=== PATIENT | female | born 1935 | race Caucasian/White ===

== ENCOUNTER → 2016-05-11 | Outpatient (CLI) | payer OTHER, MEDICARE | LOC: BHFA 08:00 | PROVIDERS: ATTEND Internal Medicine Cardiovascular Disease | DX: I50.9 Heart failure, unspecified (principal) | CPT/HCPCS: 78472; A9560 ==

== ENCOUNTER → 2016-05-19 | Outpatient (CLI) | payer OTHER, MEDICARE | LOC: BHFA 14:45 | PROVIDERS: ATTEND Internal Medicine Cardiovascular Disease | DX: I50.9 Heart failure, unspecified (principal); I34.0 Nonrheumatic mitral (valve) insufficiency ==

== ENCOUNTER → 2016-06-13 | Outpatient (CLI) | payer OTHER, MEDICARE | LOC: FIMAGING 13:08 | PROVIDERS: ATTEND Internal Medicine | DX: R05 Cough (principal); J18.9 Pneumonia, unspecified organism ==

== ENCOUNTER 2016-12-22 16:18 | Emergency (ER) | payer OTHER, MEDICARE ==
[2016-12-22 16:28] VITALS: RESP 16; TEMP 98.2
--- NOTE | 2016-12-22 16:55 | EDPHY ---
H & P Stated Complaint: lower abd/suprapubic pain, low bk pain x 6 days Time Seen by Provider: 12/22/16 16:54 HPI/ROS: HPI: This is an 81-year-old female presents with Chief Complaint: lower abd/suprapubic pain, low bk pain x 6 days Location: Lower abdomen Quality: Sharp cramping pain Duration: 6 days Signs and Symptoms: no fever, + nausea, no vomiting, no hematemesis, no blood in stool, no abdominal bloating, no diarrhea, + bilateral lower back pain, + urinary frequency, + burning with urination, indigestion, no chest pain, no shortness of breath Timing: Worsening Severity: Moderate Context: Patient reports that she has urinary incontinence and presents with complaints of burning with urination, urinary frequency that has been worsening over the last 6 days accompanied by lower bilateral back pain nonradiating in nature and now bilateral lower abdominal pain that sharp and cramping in nature. She has experienced some nausea but no vomiting. She went to urgent care on Monday and headache in out urinary catheterization which showed a urinary tract infection she was started on Macrobid an azo. She had a dose of Macrobid this morning as well as azo around 12 noon. She called her PCP this afternoon reported worsening of symptoms and he advised to go to the emergency room for further evaluation. History of bilateral tubal ligation, cholecystectomy. Patient reports that when she takes the Macrobid in the morning she does not eat it with any food and makes her slightly nauseous. She also reports that she has chronic lower back pain and sciatica which is usually on the left. Since she was diagnosed with the UTI on Monday she has not been as active and has been lying down more than usual. Modifying Factors: See above Comment: ROS: see HPI Constitutional: No fever, no chills, no weight loss Eyes: No blurred vision Respiratory: No shortness of breath, no cough Cardiovascular: No chest pain, no palpitations Gastrointestinal: + nausea, + vomiting, no diarrhea, no hematemesis, no blood in stool Genitourinary: + dysuria, no blood in urine Extremities: No myalgias, no edema Neurologic: No weakness, no numbness Skin: No rashes, no petechiae Hematologic: No bruising, no bleeding MEDICAL/SURGICAL/SOCIAL HISTORY: Medical history: Hypertension, sciatica, chronic pain, irritable bowel syndrome , anemia,pneumonia, ibs, mitral and tricuspid regurgitation, AMI, torsades Surgical history: cholecystectomy, bilateral tubal ligation Social history: Retired, strong support from her daughter's CONSTITUTIONAL: Elderly talkative pleasant white female, awake and alert, no obvious distress HEENT: Atraumatic and normocephalic, PERRL, EOMI. Tympanic membranes clear. Hard of hearing. Oropharynx clear, no exudate and moist pink mucosa. Airway patent. No lymphadenopathy. No meningismus. Cardiovascular: Normal S1/S2, regular rate, regular rhythm, without murmur rub or gallop. PULMONARY/CHEST: Symmetrical and nontender. Clear to auscultation bilaterally. Good air movement. No accessory muscle usage. ABDOMEN: Soft, nondistended, right lower quadrant, left lower quadrant moderate tenderness, no rebound, no guarding, no peritoneal signs, no masses or organomegaly. No CVAT. EXTREMITIES: 2/2 pulses, strength 5/5, no deformities, no clubbing, no cyanosis or edema. NEUROLOGICAL: no focal neuro deficits. GCS 15. SKIN: Warm and dry, no erythema. no rash. Good capillary refill. Source: Patient Exam Limitations: No limitations - Personal History Current Tetanus/Diphtheria Vaccine: Unsure Current Tetanus Diphtheria and Acellular Pertussis (TDAP): Unsure Tetanus Vaccine Date: 1994 - Medical/Surgical History Hx Asthma: Yes Hx Chronic Respiratory Disease: Yes Hx Diabetes: Yes Hx Cardiac Disease: Yes Hx Renal Disease: No Hx Cirrhosis: No Hx Alcoholism: No Hx HIV/AIDS: No Hx Splenectomy or Spleen Trauma: No Other PMH: Past medical history: Hypertension, sciatica, chronic pain, irritable bowel syndrome, anemia,pneumonia, ibs,. mitral and tricuspid regurgitation, AMI torsades, frederic - Social History Smoking Status: Former smoker Constitutional: Initial Vital Signs Temperature (C) 36.8 C 12/22/16 16:26 Heart Rate 59 L 12/22/16 16:26 Respiratory Rate 16 12/22/16 16:26 Blood Pressure 146/51 H 12/22/16 16:26 O2 Sat (%) 91 L 12/22/16 16:26 O2 Delivery Mode Room Air O2 (L/minute) 4 Allergies/Adverse Reactions: codeine [Codeine] Allergy (Intermediate, Verified 09/05/15 19:32) Vomiting doxycycline [Doxycycline] Allergy (Intermediate, Verified 09/05/15 19:32) Abdominal Pain Sulfa (Sulfonamide Antibiotics) Allergy (Intermediate, Verified 09/05/15 19:32) Vomiting Tetracyclines [Tetracycline Analogues] Allergy (Verified 09/05/15 19:32) 3M TAPE Allergy (Mild, Uncoded 11/29/12 22:42) Itching Home Medications: Medication Instructions Recorded Amitriptyline HCl [Elavil 10 mg 10 mg PO HS 09/02/11 (*)] Atorvastatin Calcium [Lipitor 20 20 mg PO HS 09/02/11 mg (*)] Multivitamins [Multivitamin (*)] 1 tab PO DAILY 09/02/11 Gabapentin [Neurontin 100 MG (*)] 200 mg PO DAILY 03/18/13 Levothyroxine [Synthroid 75 mcg 75 mcg PO DAILY06 03/18/13 (*)] Carvedilol [Coreg (*)] 25 mg PO BIDMEAL 08/03/14 Cholecalciferol Vit D3 [Vitamin D3 1,000 units PO DAILY 08/03/14 (*)] Lisinopril [Zestril 20 mg (*)] 20 mg PO DAILY #0 tab 08/10/14 Furosemide [Lasix 20 MG (*)] 40 mg PO DAILY PRN 02/24/15 Gabapentin [Neurontin 100 MG (*)] 300 mg PO HS 02/24/15 Ondansetron Odt [Zofran Odt 4 mg 4 mg PO Q4 PRN 02/24/15 (*)] Spironolactone [Aldactone 25 MG 25 mg PO DAILY 02/24/15 (*)] Warfarin Sodium [Coumadin 1MG (*)] 1 mg PO SUTUWETHSA 02/24/15 Warfarin Sodium [Coumadin 2MG (*)] 2 mg PO MOFR 02/24/15 amLODIPine BESYLATE [Norvasc 5 mg 10 mg PO DAILY 02/24/15 (*)] fentaNYL [Duragesic 12 MCG Patch 12 mcg TD Q72H 02/24/15 (*)] Omeprazole [Prilosec] 40 mg PO DAILY #0 capsule. 02/28/15 Chlorhexidine Gluconate [Peridex 15 ml PO BID@0900,2100 09/05/15 oral soln (*)] Diazepam [Valium 2 MG (*)] 1 mg PO HS 09/05/15 oxyCODONE/APAP 5/325 [Percocet 1 tab PO HS 09/05/15 5/325 (*)] Clindamycin HCl [Clindamycin] 300 mg PO TID #12 cap 09/08/15 guaiFENesin [Mucinex 600 MG (*)] 1,200 mg PO BID #30 tab.er 09/08/15 Medical Decision Making - Diagnostics Imaging Results: Imaging Impressions Abdomen CT 12/22/16 17:13 Impression: 1. No source for new pain identified. Specifically no evidence of diverticulitis, appendicitis or pyelonephritis. 2. Asymmetric urinary bladder, smooth mural thickening is again noted and unlikely to represent malignancy. Results called and discussed with Jordana Alvarez, at 12/22/2016 18:58 General information for patients regarding this examination can be found at [email or web address]. If you have questions or comments about this report, please contact me at [phone] (hospital) or [phone] (cell). ED Course/Re-evaluation: Labs, urinalysis, urine culture, IV fluids, IV medications, CT abdomen and pelvis scan ordered Given 1 L normal saline, IV morphine 4 mg, IV Zofran Vital signs reviewed upon arrival; afebrile and no tachycardia. 1845: Labs reviewed and grossly unremarkable. Urinalysis shows trace nitrates and trace epithelial cells but no clear indication of infection Called by radiologist who advised CT abdomen and pelvis scan shows no source for new pain identified. Specifically no evidence of diverticulitis, appendicitis or pyelonephritis. Patient does not show any worsening and in fact shows improvement in her urinalysis. Advised that she is to complete her Macrobid. Lower back pain is chronic in nature and likely due to her decreased activity and lying in bed over the last several days. No signs of sepsis/RISSA/electrolyte imbalance/diverticulitis/appendicitis/ pyelonephritis/obstruction Differential Diagnosis: Abdominal pain including but not limited to appendicitis, cholecystitis, gastritis and urinary tract infection. - Data Points Laboratory Results: Laboratory Results 12/22/16 17:29 12/22/16 17:29 12/22/16 12/22/16 12/22/16 17:40 17:29 17:29 WBC 4.82 10^3/uL 10^3/uL (3.80-9.50) RBC 3.88 10^6/uL L 10^6/uL (4.18-5.33) Hgb 12.2 g/dL L g/dL (12.6-16.3) Hct 37.7 % L % (38.0-47.0) MCV 97.2 fL fL (81.5-99.8) MCH 31.4 pg pg (27.9-34.1) MCHC 32.4 g/dL g/dL (32.4-36.7) RDW 12.7 % % (11.5-15.2) Plt Count 143 10^3/uL L 10^3/uL (150-400) MPV 8.9 fL fL (8.7-11.7) Neut % (Auto) 58.5 % % (39.3-74.2) Lymph % (Auto) 29.3 % % (15.0-45.0) [place] % (Auto) 8.5 % % (4.5-13.0) Eos % (Auto) 2.9 % % (0.6-7.6) Baso % (Auto) 0.4 % % (0.3-1.7) Nucleat RBC Rel Count 0.0 % % (0.0-0.2) Absolute Neuts (auto) 2.82 10^3/uL 10^3/uL (1.70-6.50) Absolute Lymphs (auto) 1.41 10^3/uL 10^3/uL (1.00-3.00) Absolute Monos (auto) 0.41 10^3/uL 10^3/uL (0.30-0.80) Absolute Eos (auto) 0.14 10^3/uL 10^3/uL (0.03-0.40) Absolute Basos (auto) 0.02 10^3/uL 10^3/uL (0.02-0.10) Absolute Nucleated RBC 0.00 10^3/uL 10^3/uL (0-0.01) Immature Gran % 0.4 % % (0.0-1.1) Immature Gran # 0.02 10^3/uL 10^3/uL (0.00-0.10) Sodium 140 mEq/L mEq/L (134-144) Potassium 4.9 mEq/L mEq/L (3.5-5.2) Chloride 99 mEq/L mEq/L (97-110) Carbon Dioxide 31 mEq/l mEq/l (22-31) Anion Gap 10 mEq/L mEq/L (8-16) BUN 17 mg/dL mg/dL (7-23) Creatinine 0.8 mg/dL mg/dL (0.6-1.0) Estimated GFR > 60 Glucose 85 mg/dL mg/dL (70-100) Calcium 9.1 mg/dL mg/dL (8.5-10.4) Total Bilirubin 1.0 mg/dL mg/dL (0.1-1.4) Conjugated Bilirubin 0.0 mg/dL mg/dL (0.0-0.5) Unconjugated Bilirubin 1.0 mg/dL mg/dL (0.0-1.1) AST 39 IU/L IU/L (14-46) ALT 31 IU/L IU/L (9-52) Alkaline Phosphatase 61 IU/L IU/L (38-126) Total Protein 6.0 g/dL L g/dL (6.3-8.2) Albumin 3.7 g/dL g/dL (3.5-5.0) Lipase 296 IU/L IU/L (23-300) Urine Color ORANGE Urine Appearance CLEAR Urine pH 6.0 (5.0-7.5) Ur Specific [place] 1.003 (1.002-1.030) Urine Protein NEGATIVE (NEGATIVE) Urine Ketones NEGATIVE (NEGATIVE) Urine Blood NEGATIVE (NEGATIVE) Urine Nitrate POSITIVE H (NEGATIVE) Urine Bilirubin NEGATIVE (NEGATIVE) Urine Urobilinogen 4.0 EU H EU (0.2-1.0) Ur Leukocyte Esterase NEGATIVE (NEGATIVE) Urine RBC NONE SEEN /hpf /hpf (0-3) Urine WBC NONE SEEN /hpf /hpf (0-3) Ur Epithelial Cells TRACE /lpf /lpf (NONE-1+) Urine Glucose NEGATIVE (NEGATIVE) Medications Given: Discontinued Medications Sodium Chloride (Ns) 1,000 mls @ 0 mls/hr IV EDNOW ONE; Wide Open PRN Reason: Protocol Stop: 12/22/16 17:03 Last Admin: 12/22/16 17:44 Dose: 1,000 mls Morphine Sulfate (Morphine) 4 mg IVP EDNOW ONE Stop: 12/22/16 17:13 Last Admin: 12/22/16 17:44 Dose: 4 mg Ondansetron HCl (Zofran) 4 mg IVP EDNOW ONE Stop: 12/22/16 17:13 Last Admin: 12/22/16 17:47 Dose: Not Given Departure - Departure Disposition: Home, Routine, Self-Care Clinical Impression: Lower urinary tract infection Condition: Good Instructions: Urinary Tract Infection in Women (ED), Chronic Back Pain (ED), Sciatica (ED) Additional Instructions: Please complete the remaining 3 days of Macrobid. Drink plenty of fluids to prevent dehydration. Call your primary care provider tomorrow to have a follow-up appointment on Monday. Take medications with food to prevent nausea. Referrals: [facility],. [Clinic] - As per Instructions
[2016-12-22] MEDS ORDERED: NS 1,000 ML IV ONE (17:02)
[2016-12-22] MEDS ORDERED: ONDANSETRON 4 MG/2 ML VIAL IVP ONE (17:12)
[2016-12-22 17:45] LABS: % IMMATURE GRANULYOCYTES 0.4 % (0.0-1.1); ABSOLUTE IMMATURE GRANULOCYTES 0.02 10^3/uL (0.00-0.10); ADD DIFF? NO; ADD MORPH? NO; ADD SCAN? NO; ATYPICAL LYMPHOCYTE FLAG 0 (0-99); FRAGMENT RBC FLAG 0 (0-99); HEMATOCRIT 37.7 % (38.0-47.0); HEMOGLOBIN 12.2 g/dL (12.6-16.3); LEFT SHIFT FLG 0 (0-99); LIPEMIA HEMOLYSIS FLAG 80 (0-99); MEAN CELL HEMOGLOBIN 31.4 pg (27.9-34.1); MEAN CELL HEMOGLOBIN CONCENTR. 32.4 g/dL (32.4-36.7); MEAN CELL VOLUME 97.2 fL (81.5-99.8); MEAN PLATELET VOLUME 8.9 fL (8.7-11.7); PLATELET CLUMPS FLAG 0 (0-99); PLATELET COUNT 143 10^3/uL (150-400); RED BLOOD CELL COUNT 3.88 10^6/uL (4.18-5.33); RED CELL DISTRIBUTION WIDTH 12.7 % (11.5-15.2)
[2016-12-22] MEDS ORDERED: IOPAMIDOL (ISOVUE-300) 100 ML BTL ONE ×2 (17:49→18:13)
[2016-12-22 17:59] LABS: ALANINE AMINOTRANSFERASE 31 IU/L (9-52); ALBUMIN 3.7 g/dL (3.5-5.0); ALKALINE PHOSPHATASE 61 IU/L (38-126); ANION GAP 10 mEq/L (8-16); ASPARTATE AMINOTRANSFERASE 39 IU/L (14-46); CALCIUM 9.1 mg/dL (8.5-10.4); CARBON DIOXIDE 31 mEq/l (22-31); CHLORIDE 99 mEq/L (97-110); CREATININE 0.8 mg/dL (0.6-1.0); GLOMERULAR FILTRATION RATE > 60; GLUCOSE 85 mg/dL (70-100); POTASSIUM 4.9 mEq/L (3.5-5.2); SODIUM 140 mEq/L (134-144)
[2016-12-22 18:33] LABS: LEUKOCYTE ESTERASE,URINE NEGATIVE (NEGATIVE); NITRITE,URINE POSITIVE (NEGATIVE)
[2016-12-22 18:34] LABS: COLOR ORANGE
[2016-12-22 18:36] LABS: RBC,URINE NONE SEEN /hpf (0-3); WBC,URINE NONE SEEN /hpf (0-3)
[2016-12-22 20:01] VITALS: BP 139/77; PULSE 63; O2SAT 95
== END 2016-12-22 20:00 | disposition home or self-care (01) ==
DX: N39.0 Urinary tract infection, site not specified (principal); B96.89 Other specified bacterial agents as the cause of diseases classified elsewhere; J45.909 Unspecified asthma, uncomplicated; I10 Essential (primary) hypertension; E11.9 Type 2 diabetes mellitus without complications; E86.9 Volume depletion, unspecified; Z87.891 Personal history of nicotine dependence; Z79.01 Long term (current) use of anticoagulants
CPT/HCPCS: 74177; 96361; 96374; 99285; J2405; Q9967

== ENCOUNTER → 2017-03-07 | Outpatient (CLI) | payer OTHER, MEDICARE | LOC: FIMAGING 15:32 | PROVIDERS: ATTEND Internal Medicine | DX: M54.6 Pain in thoracic spine (principal) ==

== ENCOUNTER 2017-03-23 20:00 | Inpatient (IN) | payer OTHER, MEDICARE ==
[2017-03-23] MEDS ORDERED: PROMETHAZINE HCL 25 MG/ML INJ IVP ONE ×2 (20:12→20:13)
--- NOTE | 2017-03-23 20:15 | EDPHY ---
H & P Time Seen by Provider: 03/23/17 20:14 HPI/ROS: CHIEF COMPLAINT: Nausea vomiting and dizziness HISTORY OF PRESENT ILLNESS: Symptoms started at 6:00 p.m.. Severe dizziness which she describes as spinning worse with moving her head associated with multiple episodes of nausea and vomiting. Later about an hour afterwards was associated with some epigastric abdominal pain and cramping. Unable to walk, brought in by EMS. Received IV Zofran by fire. No other medications by [facility]. REVIEW OF SYSTEMS: Eye: no change in vision ENT: no sore throat, hearing aids, chronic decreased hearing no change. No loss of hearing or ringing in her ears Cardiac: no chest pain or syncope Pulmonary: no cough or SOB Abdomen: HPI Musculoskeletal: no back pain Skin: no rash Neuro: no headache Constitutional: no fever : no urinary symptoms A comprehensive 10 point review of systems is otherwise negative aside from elements mentioned in the history of present illness. PAST MEDICAL HISTORY: History and physical dated 02/24/2015 personally reviewed includes torsade, PE on warfarin, hypertension, depression, thyroid, hyperlipidemia, TIA, irritable bowel, cardiomyopathy. Social history: Here with her daughter General Appearance: Alert and conversant, cooperative. Eyes: No scleral icterus. Nystagmus to the right, pupils equal and reactive ENT, Mouth: Normal mucous membranes. Right tympanic membrane normal, left one is a hearing aid in place Respiratory: Normal respiratory effort, breath sounds equal, lungs are clear to auscultation. Cardiovascular: Regular rate and rhythm. Gastrointestinal: Epigastric discomfort but no rebound or guarding on palpation. Neurological: Alert, face symmetric, normal motor and sensory in extremities. She is generally weak and is in such distress she has difficulty following commands. She can answer questions. Her hearing is decreased. She can do [id number] on both sides. Skin: Warm and dry, no rashes. Musculoskeletal: No peripheral edema. Psychiatric: Very anxious. Emergency Department course/MDM: 12.[address] ordered with vertigo and on warfarin. Labs to include LFTs and lipase. EKG performed. 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 Patient received Zofran pre- hospital, so I gave her 2 g of IV magnesium here. 2112: Head CT per [place] shows atrophy nothing acute. Patient has severe peripheral vertigo disabling symptoms will need to be admitted for supportive care. At this point I think the likelihood of central cause for vertigo is unlikely. I think her abdominal pain is most likely because of severe vomiting and not because of pancreatitis or hepatitis or some surgical process. Results discussed with the daughter at this time. Patient is comfortable now. Smoking Status: Former smoker Constitutional: Initial Vital Signs Temperature (C) 36.3 C 03/23/17 20:00 Heart Rate 85 03/23/17 20:00 Respiratory Rate 18 03/23/17 20:00 Blood Pressure 166/79 H 03/23/17 20:00 O2 Sat (%) 93 03/23/17 20:00 O2 Delivery Mode Room Air Allergies/Adverse Reactions: codeine [Codeine] Allergy (Intermediate, Verified 09/05/15 19:32) Vomiting doxycycline [Doxycycline] Allergy (Intermediate, Verified 09/05/15 19:32) Abdominal Pain Sulfa (Sulfonamide Antibiotics) Allergy (Intermediate, Verified 09/05/15 19:32) Vomiting Tetracyclines [Tetracycline Analogues] Allergy (Verified 09/05/15 19:32) 3M TAPE Allergy (Mild, Uncoded 11/29/12 22:42) Itching Home Medications: Medication Instructions Recorded Amitriptyline HCl [Elavil 10 mg 10 mg PO HS 09/02/11 (*)] Atorvastatin Calcium [Lipitor 20 20 mg PO HS 09/02/11 mg (*)] Multivitamins [Multivitamin (*)] 1 tab PO DAILY 09/02/11 Gabapentin [Neurontin 100 MG (*)] 200 mg PO DAILY 03/18/13 Levothyroxine [Synthroid 75 mcg 75 mcg PO DAILY06 03/18/13 (*)] Carvedilol [Coreg (*)] 25 mg PO BIDMEAL 08/03/14 Cholecalciferol Vit D3 [Vitamin D3 2,000 units PO DAILY 08/03/14 (*)] Lisinopril [Zestril 20 mg (*)] 20 mg PO DAILY #0 tab 08/10/14 Gabapentin [Neurontin 100 MG (*)] 300 mg PO HS 02/24/15 Warfarin Sodium [Coumadin 1MG (*)] 1 mg PO SUMOWETHSA 02/24/15 Warfarin Sodium [Coumadin 2MG (*)] 2 mg PO TUFR 02/24/15 amLODIPine BESYLATE [Norvasc 5 mg 5 mg PO DAILY 02/24/15 (*)] fentaNYL [Duragesic 12 MCG Patch 12 mcg TD Q72H 02/24/15 (*)] Omeprazole [Prilosec] 40 mg PO DAILY #0 capsule. 02/28/15 Diazepam [Valium 2 MG (*)] 1 mg PO HS 09/05/15 oxyCODONE/APAP 5/325 [Percocet 1 tab PO HS 09/05/15 5/325 (*)] Diazepam [Diazepam] 2.5 mg PO HS 03/23/17 Medical Decision Making - Diagnostics EKG Interpretation: 12-lead EKG interpreted by me; official reading is in trace master. My interpretation is sinus rhythm with ventricular bigeminy and left bundle branch block Imaging Results: Imaging Impressions Head CT 03/23/17 20:13 Impression: Severe atrophy. Nothing acute identified.. Results called to Dr. Dobbs at 9:13 pm General information for patients regarding this examination can be found at [email or web address]. If you have questions or comments about this report, please contact me at [phone] (hospital) or [phone] (cell). Imaging: Discussed imaging studies w/ tie up worker Radiologist, I viewed and interpreted images myself Differential Diagnosis: Differential diagnosis considered for dizziness including but not limited to peripheral and central causes of vertigo, vascular dissection, cerebellar bleed or stroke, orthostatic causes including dehydration, and blood loss. Consult/Admit Bed Type: [place] [id number] - Data Points Laboratory Results: Laboratory Results 03/23/17 20:45 03/23/17 20:45 03/23/17 03/23/17 03/23/17 20:45 20:45 20:45 WBC 6.85 10^3/uL 10^3/uL (3.80-9.50) RBC 4.37 10^6/uL 10^6/uL (4.18-5.33) Hgb 14.0 g/dL g/dL (12.6-16.3) Hct 42.6 % % (38.0-47.0) MCV 97.5 fL fL (81.5-99.8) MCH 32.0 pg pg (27.9-34.1) MCHC 32.9 g/dL g/dL (32.4-36.7) RDW 11.8 % % (11.5-15.2) Plt Count 137 10^3/uL L 10^3/uL (150-400) MPV 9.2 fL fL (8.7-11.7) Neut % (Auto) 71.3 % % (39.3-74.2) Lymph % (Auto) 19.1 % % (15.0-45.0) [place] % (Auto) 7.2 % % (4.5-13.0) Eos % (Auto) 2.0 % % (0.6-7.6) Baso % (Auto) 0.3 % % (0.3-1.7) Nucleat RBC Rel Count 0.0 % % (0.0-0.2) Absolute Neuts (auto) 4.88 10^3/uL 10^3/uL (1.70-6.50) Absolute Lymphs (auto) 1.31 10^3/uL 10^3/uL (1.00-3.00) Absolute Monos (auto) 0.49 10^3/uL 10^3/uL (0.30-0.80) Absolute Eos (auto) 0.14 10^3/uL 10^3/uL (0.03-0.40) Absolute Basos (auto) 0.02 10^3/uL 10^3/uL (0.02-0.10) Absolute Nucleated RBC 0.00 10^3/uL 10^3/uL (0-0.01) Immature Gran % 0.1 % % (0.0-1.1) Immature Gran # 0.01 10^3/uL 10^3/uL (0.00-0.10) PT 31.2 SEC H SEC (12.0-15.0) INR 3.03 H (0.83-1.16) Sodium 141 mEq/L mEq/L (135-145) Potassium 4.4 mEq/L mEq/L (3.5-5.2) Chloride 102 mEq/L mEq/L (97-110) Carbon Dioxide 28 mEq/l mEq/l (22-31) Anion Gap 11 mEq/L mEq/L (8-16) BUN 22 mg/dL mg/dL (7-23) Creatinine 0.9 mg/dL mg/dL (0.6-1.0) Estimated GFR 60 Glucose 121 mg/dL H mg/dL (70-100) Calcium 9.4 mg/dL mg/dL (8.5-10.4) Total Bilirubin 0.4 mg/dL mg/dL (0.1-1.4) Conjugated Bilirubin 0.3 mg/dL mg/dL (0.0-0.5) Unconjugated Bilirubin 0.1 mg/dL mg/dL (0.0-1.1) AST 29 IU/L IU/L (14-46) ALT 35 IU/L IU/L (9-52) Alkaline Phosphatase 77 IU/L IU/L (38-126) Troponin I < 0.012 ng/mL ng/mL (0.000-0.034) Total Protein 6.7 g/dL g/dL (6.3-8.2) Albumin 4.2 g/dL g/dL (3.5-5.0) Lipase 244 IU/L IU/L (23-300) Medications Given: Discontinued Medications Magnesium Sulfate (Magnesium Sulf 2 Gm (Premix)) 50 mls @ 50 mls/hr IV EDNOW ONE Stop: 03/23/17 21:49 Last Admin: 03/23/17 21:09 Dose: 50 mls Promethazine HCl (Phenergan) 12.5 mg IVP ONCE ONE Stop: 03/23/17 20:13 Last Admin: 03/23/17 20:38 Dose: 12.5 mg Promethazine HCl (Phenergan) 12.5 mg IVP EDNOW ONE Stop: 03/23/17 20:14 Last Admin: 03/23/17 20:34 Dose: Not Given Departure - Departure Disposition: [facility] Acute Clinical Impression: Vertigo Condition: Fair
--- NOTE | 2017-03-23 20:23 | CPEKG ---
Heart Rate: 65 RR Interval: 923 P-R Interval: 196 QRSD Interval: 152 QT Interval: 436 QTC Interval: 454 P [place]: 70 QRS [place]: -60 T Wave [place]: 78 EKG Severity - ABNORMAL ECG - EKG Impression: SINUS RHYTHM EKG Impression: VENTRICULAR BIGEMINY EKG Impression: LEFT BUNDLE BRANCH BLOCK Electronically Signed By: Jose Dobbs 23-Mar-2017 21:12:48
[2017-03-23] MEDS ORDERED: MAGNESIUM SULF 2 GM/WATER 50 ML IV ONE (20:50)
[2017-03-23 21:00] LABS: PLATELET COUNT 137 10^3/uL (150-400)
[2017-03-23 21:09] LABS: INR 3.03 (0.83-1.16); PROTIME(PATIENT) 31.2 SEC (12.0-15.0)
[2017-03-23] MEDS ORDERED: ACETAMINOPHEN 325 MG TAB PO PRN (22:50)
[2017-03-23] MEDS ORDERED: ONDANSETRON 4 MG/2 ML VIAL IVP PRN (22:50)
[2017-03-23] MEDS ORDERED: PROMETHAZINE HCL 25 MG/ML INJ IVP PRN (22:50)
[2017-03-23] MEDS ORDERED: NS 1,000 ML IV SCH (23:00)
[2017-03-24 04:18] LABS: PLATELET COUNT 138 10^3/uL (150-400)
[2017-03-24 04:21] LABS: INR 3.23 (0.83-1.16); PROTIME(PATIENT) 32.8 SEC (12.0-15.0)
--- NOTE | 2017-03-24 06:27 | GHP ---
[f rep st] HISTORY AND PHYSICAL DATE OF ADMISSION: 03/23/2017 SOURCE: Patient provides history, appears reliable. Her daughter is at bedside and supplements details. CHIEF COMPLAINT: The room was spinning, vertigo. HISTORY OF PRESENT ILLNESS: This is a very pleasant 81-year-old female with a past medical history significant for PE on Coumadin, torsade de pointes with a previous history of electrolyte disturbance, resolved, hypertension, depression , hypothyroidism, hyperlipidemia, IBS, nocturnal hypoxia, and CAD with history of IA, who presents to the emergency department today via EMS after she developed severe intractable vertigo with nausea and vomiting. Symptoms started suddenly, approximately 6 p.m. Patient reports she was sitting at the computer and then was on her way to walk to the bathroom when she developed sudden severe vertigo. Patient cannot recall which direction she had felt like she was spinning. She was not able to control her nausea and vomiting. She did develop a little bit of mild epigastric abdominal pain, which is now resolved. The patient denies any recent fevers or chills. No other upper respiratory illnesses. Patient states she has had some chills since arrival to the hospital, but no sweats or subjective fevers. The patient denies any known hematemesis. The patient denies any recent head injuries or falls. Patient without any previous history of vertigo. She has no associated numbness, tingling, or focal weakness. She just felt weak in general. She did have to sit down, and she pushed her Life Alert button. REVIEW OF SYSTEMS: GENERAL: Negative for fevers. Positive for current chills. No sweats. SKIN: No rash or sores. ENT: Patient denies any current rhinorrhea or sore throat. EYES: Vertigo as noted above, but otherwise patient denies any loss of vision. CV: Patient denies any chest pain or palpitations. RESPIRATORY: No shortness of breath or cough. GI: Nausea, vomiting, and abdominal pain as noted above. Now resolved. : No dysuria or hematuria. MUSCULOSKELETAL: Patient denies any focal weakness, numbness, or tingling. No significant joint pain from baseline. NEURO: Patient denies any headache. No numbness or tingling. Remainder of review of systems negative except as noted above. ALLERGIES: To codeine, doxy, sulfa, tetracycline. HOME MEDICATIONS: Coumadin 2 mg p.o. Monday and Monday, 1 mg p.o. all other days; Valium 1 to 2.5 mg p.o. q.h.s.; atorvastatin 20 mg p.o. at HS; amitriptyline 10 mg p.o. at HS; Percocet 5/325 1 tab p.o. at HS; gabapentin 300 mg p.o. at HS; fentanyl 12 mcg transdermal every 72 hours; multivitamin p.o. daily; vitamin D3 2000 units p.o. daily; amlodipine 5 mg p.o. daily; omeprazole 40 mg p.o. daily; lisinopril 20 mg p.o. daily; levothyroxine 75 mcg p.o. in the morning; gabapentin 200 mg p.o. daily; Coreg 25 mg p.o. b.i.d. with meals. PAST MEDICAL HISTORY: Significant for PE on Coumadin, benign essential hypertension, depression, hypothyroidism, hyperlipidemia, TIA, IBS, cardiomyopathy, nocturnal hypoxia on oxygen at HS, decreased hearing with use of bilateral hearing aids, CAD with history of IA in 2014. PAST SURGICAL HISTORY: Significant for left total hip arthroplasty, back surgery L5-S1, right CEA, cardiac cath x2 without need for stenting, bilateral cataract extraction with lens replacement. FAMILY HISTORY: Negative for CVA. SOCIAL HISTORY: Patient lives independently. She has good family supportive daughters in town. She quit smoking in 2002, with a 25 pack/year history. She does drink an occasional glass of wine, but nothing on a daily basis. She does not use any illicit drugs or marijuana. CODE STATUS: Full. PHYSICAL EXAMINATION: VITAL SIGNS: At the time of arrival to the ED, blood pressure 166/79, heart rate 85, respiratory rate 18, O2 sat 93% on room air, with a temperature of 36.3. Vitals at time of interview available: Blood pressure 145/56, heart rate 70, respiratory rate 18, O2 sat 97% on 4 L by nasal cannula, with a temperature 36.3. Tele with normal sinus rhythm, PVCs. GENERAL : No acute distress. Very pleasant, frail, elderly-appearing female, lying quietly in bed. Her daughter is at bedside. HEAD: Normocephalic, atraumatic. EYES: Extraocular muscles are intact. Pupils equal, round, reactive to light bilaterally and symmetric. No scleral icterus or conjunctival injection. No nystagmus noted. ENT: Mucous membranes appear quite dry. No oropharyngeal erythema or exudates. Dentures in place. NECK: Supple. Trachea midline. CV: Regular rate and rhythm. 2/6 systolic murmur appreciated. No chest wall tenderness to palpation. RESPIRATORY: Lungs are clear to auscultation bilaterally. Decreased inspiratory effort with associated diminished breath sounds bibasilarly. No wheezes, rales, or rhonchi appreciated. ABDOMEN: Positive bowel sounds, soft, nontender to palpation. No rebound, guarding, or masses appreciated. : No suprapubic tenderness to palpation. No Triplett catheter in place. EXTREMITIES: Patient without any cyanosis or clubbing, and she does have some trace lower extremity pitting edema. Patient still with 2+ pedal pulses. NEURO: Cranial nerves 2-12 intact and symmetric bilaterally. Patient is awake, alert, and oriented x4. PSYCH: Patient's thought process, content, and questions are all appropriate. She answers all questions. LABORATORY STUDIES: WBC 6.85, H and H 14.0 and 42.6, MCV 97.5, platelet count 137, no bands. PT is 31.2, INR is 2.03. Sodium is 141, potassium is 4.4, chloride 102, CO2 is 28, anion gap 11, BUN 22, creatinine 0.9, GFR 60, glucose 121, calcium 9.4, total bilirubin 0.4, ALT is 35, AST is 29, alkaline phosphatase 77. Troponin is negative. Total protein 6.7, albumin 4.2, lipase 244. TSH is 3.330. EKG reviewed myself showing sinus rhythm in the 60s with ventricular bigeminy and left bundle branch block. QTc is 454. Compared to available EKG from 02/25, shows normal sinus rhythm with a left bundle branch block. No PVCs. CT head report reviewed, showing severe atrophy, otherwise nothing acute. ASSESSMENT AND PLAN: This is a very pleasant 81-year-old female who presents with intractable vertigo and associated nausea and vomiting. 1. Vertigo. Etiology possibilities including otoliths or labyrinthitis versus less likely CVA. Patient did receive some IV fluids and antiemetics in the emergency department, and her symptoms have completely resolved at this time. Patient without any recent illness. We will continue with IV fluid hydration. We will work with pharmacy to do a review of patient's home medications that could be contributing. Phenergan will be available p.r.n. IV fluids as above. 2. Intractable nausea and vomiting, now resolved along with her vertiginous symptoms. Phenergan available p.r.n. IV fluids. 3. Thrombocytopenia, mildly decreased. Patient is on Coumadin. No evidence of active bleeding. Continue to monitor. 4. Supratherapeutic INR, slightly above range. Pharmacy consult to assist with dosing of her Coumadin while she is here. 5. Hyperglycemia. Mildly elevated in a nonfasting lab in a frail elderly lady. We will allow for some permissive hyperglycemia. 6. Benign essential hypertension. Patient's blood pressures at this time are acceptable. Resume her home medications in the morning, including her beta cal. We will monitor her electrolytes closely given her previous history of torsades, and replace as needed. 7. History of pulmonary embolism, on Coumadin. Continue as above. 8. Coronary artery disease. Continue patient's statin, beta-cal, and TERESITA. 9. Depression. Patient's mood is currently controlled. She does have amitriptyline at HS and gabapentin. We will plan to resume. 10. Hypothyroidism. Continue levothyroxine. 11. Hyperlipidemia. Continue statin. 12. Nocturnal hypoxia. Patient is on supplemental oxygen at this time, without any episodes of hypoxia. We will monitor on pulse ox. 13. Hard of hearing. Patient does have bilateral hearing aids. 14. Fluids, electrolytes, nutrition. Continue with IV fluid supplementation. Patient does appear to remain dehydrated at this time. Encourage oral intake as tolerated. Electrolytes will be monitored and replaced aggressively as needed. Advancing diet as tolerated, cardiac. 15. Prophylaxis, on Coumadin, supratherapeutic. SCDs if tolerated. 16. CORE status is full. DISPOSITION: Patient has been admitted to observation, placed on Med/Surg floor with PCU overflow, and will be monitored on telemetry. Possibility for discharge in the morning if patient is sufficiently hydrated and has no recurrence of symptoms. /[id number]/MODL MTDD
[2017-03-24] MEDS: CARVEDILOL 25 MG TAB PO SCH ×2 (08:22→16:59)
[2017-03-24] MEDS: LEVOTHYROXINE 75 MCG TAB PO SCH (08:22)
[2017-03-24] MEDS: LISINOPRIL 20 MG TAB PO SCH (08:23)
[2017-03-24] MEDS: GABAPENTIN 100 MG CAP PO SCH (08:23)
[2017-03-24] MEDS: amLODIPine BESYLATE 5 MG TAB PO SCH (08:23)
[2017-03-24] MEDS ORDERED: fentaNYL 12 MCG PATCH TD SCH (10:00)
[2017-03-24] MEDS ORDERED: NON-FORMULARY NEW DRUG (Omeprazole [Prilosec] 40 MG) PO SCH (10:30)
[2017-03-24] MEDS ORDERED: WARFARIN SODIUM 2 MG TAB PO SCH (10:30)
--- NOTE | 2017-03-24 14:31 | HOSPPROG ---
Hospitalist Progress Note Assessment/Plan: 81-year-old female admitted with vertigo and nausea and vomiting. Patient clearly describes double vision associated with nausea and vomiting. She was admitted with this and a mild degree of dehydration. Following treatment with fluids anti medics the symptoms began to resolve and currently patient is much improved. She reports she continues to feel movement if she closes her eyes and takes a bit for to settle down when she opens her eyes. The vomiting now is resolved. -acute vertigo, benign positional vertigo, with nausea and vomiting. This is now improving. Plan to continue fluids, PT instruction for vestibular stimulation, and anti emetics and meclizine as needed. -elevated INR on Coumadin. Will hold Coumadin today. -hypertension currently in good control -thrombocytopenia. Will monitor and follow -history of a PE on Coumadin anticoagulation. No history of falls and at this time risk versus benefit favors anticoagulation. Plan: Patient should be changed to inpatient status due to persistence of slight vertiginous symptoms and the concern of her care at home. She lives alone at home and would be unable to adequately respond should this reoccur. She needs instruction and physical therapy for vertiginous symptoms and 1st inner ear stimulation. Subjective: Alert and pleasant but reports some vertiginous symptoms of persisting Objective: Vital Signs Temp Pulse Resp BP Pulse Ox 36.7 C 62 18 109/40 L 99 03/24/17 12:00 03/24/17 12:00 03/24/17 12:00 03/24/17 12:00 03/24/17 12:00 Laboratory Results 03/24/17 03:56 03/24/17 03:56 03/23/17 03/24/17 03/25/17 05:59 05:59 05:59 Intake Total 600 Output Total 200 Balance 400 PT 32.8 SEC (12.0-15.0) H 03/24/17 03:56 INR 3.23 (0.83-1.16) H 03/24/17 03:56 - Time Spent With Patient Time Spent with Patient: greater than 35 minutes Time Spent with Patient: Greater than 35 minutes spent on this patients care, greater than 50% of time spent counseling, educating, and coordinating care regarding the above mentioned plan. - Pending Discharge Pending Discharge Within 24 Hours: Yes Pending Discharge Date: 03/25/17 Pending Discharge Time: 11:00 - Physical Exam Constitutional: no apparent distress Eyes: PERRL, other (Mild vertigo and nystagmus are present.) Ears, Nose, Mouth, Throat: moist mucous membranes, hard of hearing Cardiovascular: regular rate and rhythym, no murmur, rub, or gallop Respiratory: no respiratory distress, no rales or rhonchi Gastrointestinal: normoactive bowel sounds, soft, non-tender abdomen Musculoskeletal: full muscle strength Neurologic: AAOx3, CN II-XII Intact Psychiatric: interacting appropriately, anxious ICD10 Worksheet Patient Problems: Problems Problem Status Onset Lung mass Active Irritable colon Active Benign hypertension Active Hyperlipidemia Active History of - depression Active Chronic anxiety Active Hypothyroidism Active Chronic back pain Active Osteoarthritis Active Left bundle branch block Active 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
--- NOTE | 2017-03-24 14:51 | ASMTCMCOM ---
CM Note CM Note Notes: Patient admitted for vertigo. Since admission, she is feeling better but still complaining of some symptoms. She lives independently and uses a walker at home. She has two daughters in the area. OT has cleared her from home, and PT has been ordered to help work with her in light of the vertigo. I mentioned home health to the patient's daughter Armida who says that patient has an appointment with outpatient PT next week. I encouraged her to mention the vertigo so that the PT could address that as well. We can always order home health if patient is going to be homebound. Current CM Discharge plan: home independent Date Signed: 03/24/2017 02:50 PM Electronically Signed By:Jenna Merida RN
[2017-03-24] MEDS ORDERED: BISACODYL 10 MG SUPP PR PRN (14:53)
[2017-03-24] MEDS ORDERED: LACTULOSE 20 GM/30 ML UDCUP PO PRN (14:53)
[2017-03-24] MEDS ORDERED: MAGNESIUM HYDROXIDE 30 ML UDCUP PO PRN (14:53)
[2017-03-24] MEDS ORDERED: POLYETHYLENE GLYCOL 3350 17 GM PKT PO PRN (14:53)
[2017-03-24] MEDS ORDERED: WARFARIN SODIUM 1 MG TAB PO ONE (16:00)
--- NOTE | 2017-03-24 16:22 | PDMN ---
Medical Necessity Medical necessity: Change to IP, as of 03/24/17, per MD; los >2 mn for ongoing management of persistent vertigo w/nausea & vomiting; pt lives independently & is currently unable to safely return home; admit for further monitoring, IVFs & PT; hx PE on AC, thrombocytopenia, htn; per progress note & order 03/24/17
[2017-03-24] MEDS ORDERED: AMITRIPTYLINE HCL 10 MG TAB PO SCH (21:00)
[2017-03-24] MEDS ORDERED: ATORVASTATIN CALCIUM 20 MG TAB PO SCH (21:00)
[2017-03-24] MEDS ORDERED: DIAZEPAM 5 MG TAB PO SCH (21:00)
[2017-03-24] MEDS ORDERED: GABAPENTIN 100 MG CAP PO SCH (21:00)
[2017-03-24] MEDS: SENNOSIDES/DOCUSATE SODIUM TAB PO SCH (21:21)
[2017-03-25] MEDS: LEVOTHYROXINE 75 MCG TAB PO SCH (05:14)
[2017-03-25 06:15] LABS: INR 3.33 (0.83-1.16); PROTIME(PATIENT) 33.6 SEC (12.0-15.0)
[2017-03-25] MEDS ORDERED: WARFARIN SODIUM 1 MG TAB PO SCH (09:00)
[2017-03-25] MEDS ORDERED: MULTIVITAMINS 1 EACH TAB PO SCH (09:00)
[2017-03-25] MEDS ORDERED: PANTOPRAZOLE SODIUM 40 MG TAB PO SCH (09:00)
[2017-03-25] MEDS: GABAPENTIN 100 MG CAP PO SCH (11:08)
[2017-03-25] MEDS: SENNOSIDES/DOCUSATE SODIUM TAB PO SCH (11:09)
[2017-03-25] MEDS: CARVEDILOL 25 MG TAB PO SCH ×2 (12:32→18:32)
[2017-03-25] MEDS: amLODIPine BESYLATE 5 MG TAB PO SCH (13:48)
[2017-03-25] MEDS: LISINOPRIL 20 MG TAB PO SCH (13:48)
[2017-03-25 15:59] VITALS: PULSE 57; RESP 16; TEMP 98.3; O2SAT 97
[2017-03-25 16:00] VITALS: BP 114/66
--- NOTE | 2017-03-25 16:30 | PDHOMEO2F ---
Home Oxygen Face to Face Home Orders: I certify that a physician or a nurse practitioner or physician's assistant guest services manager has had a zdwn-su-qalk encounter with this patient on the date of this order due to the diagnosis listed, which relates to the primary reason the patient requires home oxygen. Alternative treatments have been tried, or considered, and deemed ineffective. It is anticipated that supplemental oxygen will result in improvement with treatment. Home oxygen qualifying diagnosis: hypoxemia Home oxygen secondary diagnosis: COPD Frequency of home oxygen needed: continuous Home oxygen delivery device: nasal cannula Concentrator: Yes E-tanks for mobility and back up: Yes If ordering portable O2, is the patient mobile in the home?: Yes I certify that, based on these findings, the home oxygen is medically necessary for this patient for the following length of time. Length of time home oxygen needed: 3 months
--- NOTE | 2017-03-25 16:39 | ASMTCMCOM ---
CM Note CM Note Notes: Met w/pt and dtr, PT recommended SNF. Pt politely declined, stating is set up with [facility] 5 hrs[facility]day and is get PT through [facility] and does not want hc for the same reasons, pt states will not be homebound. Dr. Gage also present. DC Plan: Home w/current homecare and out patient PT Date Signed: 03/25/2017 04:38 PM Electronically Signed By:Katty Shukla RN
--- NOTE | 2017-03-25 18:44 | PDHOMEO2F ---
Home Oxygen Face to Face Home Orders: I certify that a physician or a nurse practitioner or physician's kindergarten assistant has had a kbpg-do-cvpt encounter with this patient on the date of this order due to the diagnosis listed, which relates to the primary reason the patient requires home oxygen. Alternative treatments have been tried, or considered, and deemed ineffective. It is anticipated that supplemental oxygen will result in improvement with treatment. Home oxygen qualifying diagnosis: COPD SpO2 on room air (%): 82 Frequency of home oxygen needed: continuous Home oxygen liters per minute: 2 Home oxygen delivery device: nasal cannula Concentrator: Yes E-tanks for mobility and back up: Yes If ordering portable O2, is the patient mobile in the home?: Yes I certify that, based on these findings, the home oxygen is medically necessary for this patient for the following length of time. Length of time home oxygen needed: 3 months
--- NOTE | 2017-03-26 14:36 | GDS ---
[f rep st] DISCHARGE SUMMARY NEW AND ACUTE DIAGNOSES: 1. Acute vertigo with benign positional vertigo, with nausea and vomiting. 2. Hypoxemia, acute and chronic. 3. Thrombocytopenia, mild and stable. 4. History of a pulmonary embolus, on Coumadin anticoagulation. CHRONIC DIAGNOSES: 1. History of torsades de pointes with a previous history of electrolyte disturbances, now resolved. 2. Hypertension. 3. Hypothyroidism. 4. Hyperlipidemia. 5. Irritable bowel syndrome. 6. Nocturnal hypoxemia. 7. History of coronary artery disease with a prior myocardial infarction. CONSULTATIONS: None. PROCEDURES: Tyrese maneuvers were demonstrated to the patient. HOSPITAL COURSE: This is an 81-year-old female, who presented with nausea, vomiting, and was noted t o have nystagmus and felt to have benign positional vertigo. She was treated with IV fluid hydration , antinausea, and antihistamines. The nystagmus resolved nearly fully within 24 hours of admission. She remained slightly weak and unsteady and was mildly hypoxic at rest and with exertion. She had p reviously been using oxygen only at night, yet has oxygen tubing to use it fully during the day. [facility] evaluated the patient and felt that she should be placed in an SNF facility for strengt hening and some rehabilitation, although the patient has declined. Thus, home care with RN services are being ordered. Her nystagmus fully resolved. Tyrese maneuvers were demonstrated. She has been given home instructio ns regarding the Tyrese maneuvers. DISCHARGE MEDICATIONS: Continued medications are Elavil 10 mg h.s., multivitamins 1 tablet daily, At orvastatin 20 mg h.s., Synthroid 75 mcg daily, Neurontin 200 mg daily, vitamin D3 at 2000 internation al units daily, carvedilol 25 mg b.i.d., lisinopril 20 mg daily, Norvasc 5 mg daily, Neurontin 300 mg h.s., Coumadin 2 mg on Monday and Monday and 1 mg on Monday, Monday, Monday, , Monday, Duragesic patch 12 mcg transdermal q.72 hours, Prilosec 40 mg daily, diazepam 2.5 mg h.s. Discontinue medications are Valium 1 mg h.s. and Percocet 5/325 mg p.o. h.s. Patient's medications were reviewed. She reported feelings of weakness and mild dizziness, without e vidence of nystagmus, during the last 24 hours of her admission. A chest x-ray was performed and berta wed no active cardiopulmonary disease. The chest x-ray was done to explain her increased hypoxemia. While the increased hypoxemia may be her baseline, her feelings of weakness could be the result of e xcessive use of narcotic and sedative medication. As a result of this, I have discontinued her night time Valium but allowed her to continue her Valium 2.5 mg on a daily basis. In addition, I have stre ssed and asked her to stop her Percocet. I would encourage, at her next followup visit, a review of her medications further. It is possible she does not need the dual doses of Neurontin which she is c urrently taking. PLAN: Patient will follow up in the next 1-[address] Joshua Carney, her PCP. Note that she will be continuing her oxygen at 2 L/minute on a continuous basis, and the orders have been written for this. TIME: Required 55 minutes for pre parole counseling aide and coordinating care. I have discussed all questions with th e daughter and the patient, and all were answered fully. /[id number]/MODL
[2017-03-28] MEDS ORDERED: WARFARIN SODIUM 2 MG TAB PO SCH (09:00)
== END 2017-03-25 19:52 | disposition home health service (06) | DRG 149 ==
LOC: EDUNIT# → INTOOBSV 21:40 → F2W 23:03 → OBSVTOIN 03-24 14:32 → F3E 03-24 17:46
PROVIDERS: ADMIT Internal Medicine; ATTEND Internal Medicine Pulmonary Disease
DX: H81.10 Benign paroxysmal vertigo, unspecified ear (principal); R09.02 Hypoxemia; I10 Essential (primary) hypertension; I42.9 Cardiomyopathy, unspecified; D69.6 Thrombocytopenia, unspecified; E03.9 Hypothyroidism, unspecified; E78.5 Hyperlipidemia, unspecified; K58.9 Irritable bowel syndrome, unspecified; I25.10 Atherosclerotic heart disease of native coronary artery without angina pectoris; I25.2 Old myocardial infarction; F32.9 Major depressive disorder, single episode, unspecified; H91.93 Unspecified hearing loss, bilateral; Z97.4 Presence of external hearing-aid; Z79.01 Long term (current) use of anticoagulants; Z86.711 Personal history of pulmonary embolism; Z87.891 Personal history of nicotine dependence
CPT/HCPCS: 96365; 97116-GP; 97161-GP; 97165-GO; 97535-GO; G0378; G8978-GP-CJ; G8979-GP-CI; G8987-GO-CI; G8988-GO-CI; J2405; J2550; J3475

== ENCOUNTER 2017-04-14 18:44 | Inpatient (IN) | payer OTHER, MEDICARE ==
--- NOTE | 2017-04-14 18:56 | CPEKG ---
Heart Rate: 88 RR Interval: 682 P-R Interval: 205 QRSD Interval: 152 QT Interval: 420 QTC Interval: 509 P Rice: 54 QRS Rice: -66 T Wave Rice: 68 EKG Severity - ABNORMAL ECG - EKG Impression: SINUS RHYTHM EKG Impression: MULTIFORM VENTRICULAR PREMATURE COMPLEXES EKG Impression: LEFT BUNDLE BRANCH BLOCK Electronically Signed By: Jose Dobbs 14-Apr-2017 19:24:21
--- NOTE | 2017-04-14 19:07 | EDPHY ---
H & P Time Seen by Provider: 04/14/17 18:54 HPI/ROS: CHIEF COMPLAINT: "The vertigo is back" HISTORY OF PRESENT ILLNESS: Patient was admitted from March 24 the with acute vertigo which was severe. She was doing well until this evening around 5:40 p.m. When her daughter noted that patient called her and noted that vertigo was back and was severe. It is positional and associated with severe nausea and vomiting. Patient received 12.5 mg IV Phenergan and route to the hospital now is very somnolent and unable to give further history. Further history and review of systems unable as the patient is somnolent from medication PAST MEDICAL HISTORY: Includes vertigo, chronic hypoxemia, thrombocytopenia. Pulmonary embolism on Coumadin. With history of torsade, hypertension, hyperthyroid, hyperlipidemia, irritable bowel, coronary disease with prior IN. Social history: Here with her daughter General Appearance: Sleepy. Eyes: Left gaze preference but pupils are reactive ENT, Mouth: Normal mucous membranes. Respiratory: Normal respiratory effort, breath sounds equal, lungs are clear to auscultation. Cardiovascular: Regular rate and rhythm. Gastrointestinal: Abdomen is soft and non tender. 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 Face is symmetric. Left eye deviation as noted above. Skin: Warm and dry, no rashes. Musculoskeletal: No peripheral edema. Psychiatric: Unable, sleepy Emergency Department course/MDM: No additional antiemetic as the patient is so sleepy. Head CT ordered for neurologic changes and anticoagulation, read as negative by Dr. Chino Escamilla. On admission patient had recurrent chest pain, EKG is ordered and does not show acute ST changes. 2nd EK-lead EKG interpreted by me; official reading is in trace master. My interpretation is sinus rhythm with PVC and left bundle branch block. Admission for recurrent severe vertigo. I think peripheral vertigo is much more likely than a central cause at this time. Smoking Status: Former smoker Constitutional: Initial Vital Signs Temperature (C) 36.5 C 04/14/17 18:44 Heart Rate 83 04/14/17 18:44 Respiratory Rate 16 04/14/17 18:44 Blood Pressure 153/78 H 04/14/17 18:44 O2 Sat (%) 98 04/14/17 18:44 O2 Delivery Mode Nasal Cannula O2 (L/minute) 2 Allergies/Adverse Reactions: codeine [Codeine] Allergy (Intermediate, Verified 09/05/15 19:32) Vomiting doxycycline [Doxycycline] Allergy (Intermediate, Verified 09/05/15 19:32) Abdominal Pain Sulfa (Sulfonamide Antibiotics) Allergy (Intermediate, Verified 09/05/15 19:32) Vomiting Tetracyclines [Tetracycline Analogues] Allergy (Verified 09/05/15 19:32) 3M TAPE Allergy (Mild, Uncoded 11/29/12 22:42) Itching Home Medications: Medication Instructions Recorded Amitriptyline HCl [Elavil 10 mg 10 mg PO HS 09/02/11 (*)] Atorvastatin Calcium [Lipitor 20 20 mg PO HS 09/02/11 mg (*)] Multivitamins [Multivitamin (*)] 1 tab PO DAILY 09/02/11 Gabapentin [Neurontin 100 MG (*)] 200 mg PO DAILY 03/18/13 Levothyroxine [Synthroid 75 mcg 75 mcg PO DAILY06 03/18/13 (*)] Carvedilol [Coreg (*)] 25 mg PO BIDMEAL 08/03/14 Cholecalciferol Vit D3 [Vitamin D3 2,000 units PO DAILY 08/03/14 (*)] Lisinopril [Zestril 20 mg (*)] 20 mg PO DAILY #0 tab 08/10/14 Gabapentin [Neurontin 100 MG (*)] 300 mg PO HS 02/24/15 Warfarin Sodium [Coumadin 1MG (*)] 1 mg PO SUMOWETHSA 02/24/15 Warfarin Sodium [Coumadin 2MG (*)] 2 mg PO TUFR 02/24/15 amLODIPine BESYLATE [Norvasc 5 mg 5 mg PO DAILY 02/24/15 (*)] fentaNYL [Duragesic 12 MCG Patch 12 mcg TD Q72H 02/24/15 (*)] Omeprazole [Prilosec] 40 mg PO DAILY #0 capsule. 02/28/15 Diazepam 2.5 mg PO HS 03/23/17 oxyCODONE/APAP 5/325 [Percocet 1 tab PO HS 04/14/17 5/325 (*)] Medical Decision Making - Diagnostics EKG Interpretation: 12-lead EKG interpreted by me; official reading is in trace master. My interpretation is sinus rhythm with PVC and left bundle branch block, rate 88. Imaging Results: Imaging Impressions Head CT 04/14/17 19:04 Impression: 1. Severe cerebral and cerebellar atrophy. 2. No acute hemorrhage, hydrocephalus, or mass effect. 3. Cerebrovascular atherosclerosis. 4. No definite acute infarct. 5. Multiple old lacunar infarcts bilateral basal ganglia. 6. Moderate microvascular ischemic gliosis. Findings and recommendations discussed with Emergency Department physician, Jose Dobbs at 1933 hour, 04/14/2017. Final report concurs with initial preliminary interpretation. Imaging: Discussed imaging studies w/ scallop raker Radiologist Differential Diagnosis: Differential diagnosis considered for dizziness including but not limited to peripheral and central causes of vertigo, orthostatic causes including dehydration, and blood loss. Consult/Admit Bed Type: Kimball - Data Points Laboratory Results: Laboratory Results 04/14/17 19:27 04/14/17 19:05 04/14/17 04/14/17 04/14/17 19:27 19:05 19:05 WBC 7.02 10^3/uL 10^3/uL (3.80-9.50) RBC 4.16 10^6/uL L 10^6/uL (4.18-5.33) Hgb 13.5 g/dL g/dL (12.6-16.3) Hct 40.5 % % (38.0-47.0) MCV 97.4 fL fL (81.5-99.8) MCH 32.5 pg pg (27.9-34.1) MCHC 33.3 g/dL g/dL (32.4-36.7) RDW 11.9 % % (11.5-15.2) Plt Count 146 10^3/uL L 10^3/uL (150-400) MPV 9.1 fL fL (8.7-11.7) Neut % (Auto) 69.0 % % (39.3-74.2) Lymph % (Auto) 19.9 % % (15.0-45.0) Kinney % (Auto) 7.4 % % (4.5-13.0) Eos % (Auto) 2.7 % % (0.6-7.6) Baso % (Auto) 0.4 % % (0.3-1.7) Nucleat RBC Rel Count 0.0 % % (0.0-0.2) Absolute Neuts (auto) 4.84 10^3/uL 10^3/uL (1.70-6.50) Absolute Lymphs (auto) 1.40 10^3/uL 10^3/uL (1.00-3.00) Absolute Monos (auto) 0.52 10^3/uL 10^3/uL (0.30-0.80) Absolute Eos (auto) 0.19 10^3/uL 10^3/uL (0.03-0.40) Absolute Basos (auto) 0.03 10^3/uL 10^3/uL (0.02-0.10) Absolute Nucleated RBC 0.00 10^3/uL 10^3/uL (0-0.01) Immature Gran % 0.6 % % (0.0-1.1) Immature Gran # 0.04 10^3/uL 10^3/uL (0.00-0.10) PT 28.2 SEC H SEC (12.0-15.0) INR 2.65 H (0.83-1.16) Sodium 138 mEq/L mEq/L (135-145) Potassium 4.4 mEq/L mEq/L (3.5-5.2) Chloride 98 mEq/L mEq/L (97-110) Carbon Dioxide 28 mEq/l mEq/l (22-31) Anion Gap 12 mEq/L mEq/L (8-16) BUN 28 mg/dL H mg/dL (7-23) Creatinine 0.9 mg/dL mg/dL (0.6-1.0) Estimated GFR 60 Glucose 116 mg/dL H mg/dL (70-100) Calcium 9.0 mg/dL mg/dL (8.5-10.4) Troponin I < 0.012 ng/mL ng/mL (0.000-0.034) Departure - Departure Disposition: [facility] Inpatient Acute Clinical Impression: Vertigo Condition: Fair
[2017-04-14 19:28] LABS: PLATELET COUNT 146 10^3/uL (150-400)
[2017-04-14 19:39] LABS: INR 2.65 (0.83-1.16); PROTIME(PATIENT) 28.2 SEC (12.0-15.0)
--- NOTE | 2017-04-14 20:32 | CPEKG ---
Heart Rate: 58 RR Interval: 1034 QRSD Interval: 150 QT Interval: 420 QTC Interval: 413 QRS Hardwick: -61 T Wave Hardwick: 75 EKG Severity - ABNORMAL ECG - EKG Impression: SINUS RHYTHM EKG Impression: MULTIFORM VENTRICULAR PREMATURE COMPLEXES EKG Impression: LEFT BUNDLE BRANCH BLOCK Electronically Signed By: Jose Dobbs 14-Apr-2017 20:58:31
[2017-04-14] MEDS ORDERED: MECLIZINE HCL 25 MG TAB PO PRN (21:28)
[2017-04-14] MEDS ORDERED: ACETAMINOPHEN 325 MG TAB PO PRN (21:31)
[2017-04-14] MEDS ORDERED: WARFARIN SODIUM 2 MG TAB PO SCH (21:45)
[2017-04-14] MEDS ORDERED: NS 1,000 ML IV SCH (23:00)
--- NOTE | 2017-04-14 23:20 | GHP ---
[f rep st] HISTORY AND PHYSICAL DATE OF ADMISSION: 04/14/2017 CHIEF COMPLAINT: Vertigo. HISTORY OF PRESENT ILLNESS: The patient is an 81-year-old female with a history of pulmonary embolism on chronic anticoagulation, torsade de pointes in the setting of electrolyte disturbance, hypertension, hyperlipidemia, and coronary artery disease with history of OH, presents to the emergency department via EMS with sudden onset of vertigo with associated nausea and vomiting. She was admitted to the hospital with a similar episode March 23, 2017. This was thought to be secondary to benign paroxysmal positional vertigo. She was apparently given a demonstration of Apley's maneuvers and it was recommended that she attempt these maneuvers at home. It's unclear if she tried these. She received IV Phenergan en route via EMS and is quite sedated at the time of my evaluation. However, she is able to wake up and notes her symptoms are worse when she turns her head. She describes the vertigo sensation as if she is going off to the right. She otherwise denies headaches or vision changes. Since hospital discharge, her daughter states she really was not feeling well until just about a week ago, she started to feel better, but then suddenly became worse again. Her daughter describes she becomes debilitated with the onset of these symptoms. In the emergency department, CT brain was performed which showed severe cerebral and cerebellar atrophy. No acute hemorrhage or mass effect. Multiple old lacunar infarcts are noted. Given the severity of her illness, she is admitted to the hospital for further management. PAST MEDICAL HISTORY: 1. History of pulmonary embolism, on chronic anticoagulation. 2. Hypertension. 3. Hyperlipidemia. 4. Hypothyroidism. 5. History of TIA. 6. History of lacunar infarcts. 7. Irritable bowel syndrome. 8. Depression. 9. Cardiomyopathy. 10. Coronary artery disease, history of OH in 2014. 11. Hard of hearing. 12. Nocturnal hypoxemia, on nocturnal oxygen. PAST SURGICAL HISTORY: Left AZAR, back surgery of L5-S1, right carotid endarterectomy, cardiac cath x2 without stenting, bilateral cataract extraction with lens replacement. FAMILY HISTORY: Negative for stroke. SOCIAL HISTORY: Patient lives independently. She has good support from her daughters, 1 of whom is at the bedside. She has a history of tobacco abuse. Quit smoking in 2002 with 25 pack-year history. She reports occasional alcohol use. Her daughter also notes she has been taking nightly Valium 2.5 mg for the past 3 years, as well as a nightly Percocet. These doses have not changed. REVIEW OF SYSTEMS: A 10-point review of systems was performed, negative except as per HPI. OBJECTIVE: VITAL SIGNS: Temperature is 36.3, blood pressure 144/68, heart rate 63, respiratory rate 18, she is 94% on 1 L. GENERAL: The patient is awake , alert, oriented, in no acute distress. HEENT: Head is atraumatic, normocephalic. Pupils equal, round, and reactive to light. She has horizontal nystagmus to the right. Extraocular muscles intact. Oropharynx is clear. Mucous membranes are moist. NECK: Supple. There is no JVD. HEART: Regular rate and rhythm without murmur. LUNGS: Clear auscultation bilaterally. ABDOMEN: Soft, nondistended. Normoactive bowel sounds. EXTREMITIES: Without cyanosis, clubbing, or edema. NEUROLOGIC: She moves all 4 extremities. Pronator drift is negative. She has no facial asymmetry. LABORATORY DATA: CBC reveals a normal white count, platelets of 146. INR is therapeutic at 2.65. Basic metabolic panel shows normal electrolytes. BUN slightly elevated at 28. Troponin is negative. TSH 2.09. Head CT performed in the emergency department is negative for acute infarct or hemorrhage. Severe cerebral and cerebellar atrophy is noted, as well as old lacunar infarcts in the bilateral basal ganglia and moderate microvascular ischemic changes. EKG showed normal sinus rhythm with a left bundle branch block and frequent PVCs. This is unchanged from prior. ASSESSMENT AND PLAN: The patient is an 81-year-old female with history of coronary artery disease, hypertension, hyperlipidemia, and prior transient ischemic attack and stroke, who returns to the hospital with ongoing severe vertigo. 1. Vertigo. CT brain is negative. Given her recurring symptoms, unilateral nystagmus and prior history of stroke, I will get a brain MRI in the morning to rule out cerebellar stroke. If this is negative, we will ask therapy to perform Clifton-Hallpike and Tyrese maneuvers for presumed benign paroxysmal positional vertigo. In the meantime, we will provide supportive care with p.r.n. meclizine and Phenergan. We will defer Zofran given her history of torsade. Physical therapy/occupational therapy evaluation is requested. 2. Pulmonary embolism, on chronic anticoagulation. Her INR is therapeutic. We will continue her Coumadin, we will ask Pharmacy to dose. 3. Hypertension, fairly well controlled. We will continue her outpatient amlodipine, Coreg and lisinopril. 4. Hyperlipidemia. Continue statin. 5. Hypothyroidism. Continue levothyroxine. 6. Chronic pain. Continue her outpatient fentanyl dose, which is due to be changed on Monday. 7. Deep venous thrombosis prophylaxis. Patient is anticoagulated. CODE STATUS: Full code. DISPOSITION: The patient admitted to inpatient status as I anticipate greater than 48 hours' hospitalization for ongoing workup and management of her severe debilitating vertigo. /[id number]/MODL MTDD
[2017-04-15] MEDS ORDERED: PROMETHAZINE HCL 25 MG/ML INJ IVP PRN
--- NOTE | 2017-04-15 01:49 | PDMN ---
Medical Necessity Medical necessity: C/M review: est. > 2 MN LOS for eval and TX of acute and persistent severe debilitating vertigo, nausea, vomiting right sided nystagmus, requiring IV fluids, planned 04/15/2017 brain MRI, ongoing oral Meclizine and IV Phenergan as needed, pulse oximetry, supplemental O2, acute inpt PT/OT, history recent hospitalization for benign paroxysmal positional vertigo, of CAD, hypertension, hyperlipidemia, prior TIA, pulmonary embolus on chronic anticoagulation, hypothyroidism, chronic pain, lacunar infarcts, irritable bowel syndrome, depression, cardiomyopathy, AL in 2014, hard of hearing, nocturnal hypoxia on nocturnal O2 per H/P.
[2017-04-15] MEDS: LEVOTHYROXINE 75 MCG TAB PO SCH (06:50)
[2017-04-15] MEDS ORDERED: CARVEDILOL 25 MG TAB PO SCH (08:00)
[2017-04-15] MEDS ORDERED: NON-FORMULARY NEW DRUG (Omeprazole [Prilosec] 40 MG) PO SCH (09:00)
[2017-04-15] MEDS ORDERED: LISINOPRIL 20 MG TAB PO SCH (09:00)
[2017-04-15] MEDS ORDERED: ENOXAPARIN 40 MG/0.4 ML SYR SC SCH (09:00)
[2017-04-15 10:01] LABS: INR 3.06 (0.83-1.16); PROTIME(PATIENT) 31.5 SEC (12.0-15.0)
[2017-04-15] MEDS: GABAPENTIN 100 MG CAP PO SCH (10:17)
--- NOTE | 2017-04-15 10:27 | HOSPPROG ---
Hospitalist Progress Note Assessment/Plan: Patient is an 81-year-old female with a history of a pulmonary embolism on chronic anticoagulation, torsade stay points in the setting of electrolyte disturbance, hypertension hyperlipidemia coronary disease she presented the emergency department with sudden onset of vertigo with associated nausea and vomiting. In the emergency room CT of the brain was performed which showed severe cerebral and cerebellar atrophy. Old lacunar infarcts were noted she was admitted for further care * vertigo -CT of brain is negative -awaiting MRI to rule out a stroke -her symptoms have completely resolved, but she is feeling overall weak * pulmonary embolism -on chronic anticoagulation with an INR of 3.06 *htn -Norvasc *HLD: statin *Hypothyroidism -Synthroid *Plan : Follow up with MRI. Came back twice today to explained to family and patient plan of care. Subjective: Patient is feeling very tired. Objective: Vital Signs Temp Pulse Resp BP Pulse Ox 36.8 C 56 L 15 110/46 L 97 04/15/17 08:00 04/15/17 08:00 04/15/17 08:00 04/15/17 08:00 04/15/17 08:00 04/14/17 04/15/17 04/16/17 05:59 05:59 06:59 Intake Total 200 Output Total 600 Balance -400 PT 31.5 SEC (12.0-15.0) H 04/15/17 09:29 INR 3.06 (0.83-1.16) H 04/15/17 09:29 - Physical Exam Constitutional: no apparent distress, appears nourished Eyes: PERRL Ears, Nose, Mouth, Throat: hearing normal Cardiovascular: regular rate and rhythym Respiratory: no respiratory distress Skin: warm Musculoskeletal: generalized weakness Neurologic: AAOx3 Psychiatric: interacting appropriately ICD10 Worksheet Patient Problems: Problems Problem Status Onset Vertigo Acute Benign hypertension Active Chronic anxiety Active Chronic back pain Active History of - depression Active Hyperlipidemia Active Hypothyroidism Active Irritable colon Active Left bundle branch block Active Lung mass Active Osteoarthritis Active Syncope Active Tobacco dependence in remission Active Chronic Disease Mgmt/Transitional Care Acute Dehydration Acute Dehydration, mild Acute Failure to thrive in adult Acute Hemoptysis Acute Hip pain, right Acute NSTEMI (non-ST elevated myocardial infarction) Acute Pancreatic cyst Acute Pneumonia Acute
[2017-04-15] MEDS: amLODIPine BESYLATE 5 MG TAB PO SCH ×3 (10:36→17:42)
[2017-04-15] MEDS: PANTOPRAZOLE SODIUM 40 MG TAB PO SCH (10:37)
--- NOTE | 2017-04-15 13:37 | ASMTCMCOM ---
CM Note CM Note Notes: Patient is a 81 year old female admitted via ED for severe vertigo. Patient was last admitted 03/24 for vertigo, discharge plan was to home with [facility] and outpatient PT through [facility], patient declined SNF (PT rec). History of PE and on chronic anticoagulation., INR 3.6 on 04/15. Head CT performed 04/14 and to get Brain MRI today to r/o cerebellar stroke. Patients daughter supporting the patient here, Tiera Guerra [phone] (per chart). Patient lives independently. Discharge needs unknown at this time, per chart inpatient stay estimated < 48 hrs for workup and management of severe debilitating vertigo. CM available to follow and address discharge needs. D/C plan: to be determined at this time. Date Signed: 04/15/2017 01:36 PM Electronically Signed By:Cleopatra Singer
[2017-04-15] MEDS ORDERED: WARFARIN SODIUM 1 MG TAB PO SCH ×2 (16:00→21:35)
[2017-04-15] MEDS ORDERED: ATORVASTATIN CALCIUM 20 MG TAB PO SCH (21:00)
[2017-04-15] MEDS ORDERED: AMITRIPTYLINE HCL 10 MG TAB PO SCH (21:00)
[2017-04-15] MEDS ORDERED: DIAZEPAM 5 MG TAB PO SCH (21:00)
[2017-04-15] MEDS ORDERED: OXYCODONE/APAP 5/325 TAB PO SCH (21:00)
[2017-04-15] MEDS ORDERED: GABAPENTIN 100 MG CAP PO SCH (21:00)
[2017-04-16 05:23] LABS: INR 3.36 (0.83-1.16); PROTIME(PATIENT) 33.8 SEC (12.0-15.0)
[2017-04-16] MEDS: LEVOTHYROXINE 75 MCG TAB PO SCH (06:19)
--- NOTE | 2017-04-16 09:45 | HOSPPROG ---
Hospitalist Progress Note Assessment/Plan: Patient is an 81-year-old female with a history of a pulmonary embolism on chronic anticoagulation, torsade stay points in the setting of electrolyte disturbance, hypertension hyperlipidemia coronary disease she presented the emergency department with sudden onset of vertigo with associated nausea and vomiting. In the emergency room CT of the brain was performed which showed severe cerebral and cerebellar atrophy. Old lacunar infarcts were noted she was admitted for further care * vertigo -CT of brain is negative -MRI is negative * pulmonary embolism -on chronic anticoagulation with an INR of 3.36 *htn -Norvasc *HLD: statin *Hypothyroidism -Synthroid *Plan : will get her home care for her next week. Subjective: Dorothy is feeling much better today, not dizzy, eating well. Objective: Vital Signs Temp Pulse Resp BP Pulse Ox 36.4 C 57 L 18 122/44 H 99 04/16/17 07:33 04/16/17 07:33 04/16/17 07:33 04/16/17 07:33 04/16/17 07:33 04/15/17 04/16/17 04/17/17 04:59 05:59 05:59 Intake Total Output Total Balance PT 33.8 SEC (12.0-15.0) H 04/16/17 04:24 INR 3.36 (0.83-1.16) H 04/16/17 04:24 - Physical Exam Constitutional: no apparent distress, appears nourished, not in pain Eyes: PERRL Ears, Nose, Mouth, Throat: hearing normal Respiratory: no respiratory distress Skin: warm Musculoskeletal: generalized weakness Neurologic: AAOx3 Psychiatric: interacting appropriately ICD10 Worksheet Patient Problems: Problems Problem Status Onset Vertigo Acute Benign hypertension Active Chronic anxiety Active Chronic back pain Active History of - depression Active Hyperlipidemia Active Hypothyroidism Active Irritable colon Active Left bundle branch block Active Lung mass Active Osteoarthritis Active Syncope Active Tobacco dependence in remission Active Chronic Disease Mgmt/Transitional Care Acute Dehydration Acute Dehydration, mild Acute Failure to thrive in adult Acute Hemoptysis Acute Hip pain, right Acute NSTEMI (non-ST elevated myocardial infarction) Acute Pancreatic cyst Acute Pneumonia Acute
[2017-04-16 11:15] VITALS: PULSE 59; RESP 16; TEMP 97.9; O2SAT 98
[2017-04-16] MEDS: GABAPENTIN 100 MG CAP PO SCH (11:38)
[2017-04-16] MEDS: amLODIPine BESYLATE 5 MG TAB PO SCH (11:38)
[2017-04-16] MEDS: PANTOPRAZOLE SODIUM 40 MG TAB PO SCH (11:39)
--- NOTE | 2017-04-16 12:38 | PDIAF ---
- Diagnosis Diagnosis: vertigo Code Status: Full Code - Medication Management Discharge Medications: Medications to Continue on Transfer Amitriptyline HCl [Elavil 10 mg (*)] 10 mg PO HS 09/02/11 [Last Taken 04/13/17] Atorvastatin Calcium [Lipitor 20 mg (*)] 20 mg PO HS 09/02/11 [Last Taken ] Multivitamins [Multivitamin (*)] 1 tab PO DAILY 09/02/11 [Last Taken 04/14/17] Gabapentin [Neurontin 100 MG (*)] 200 mg PO DAILY 03/18/13 [Last Taken 04/14/17] Levothyroxine [Synthroid 75 mcg (*)] 75 mcg PO DAILY06 03/18/13 [Last Taken 10/24] Carvedilol [Coreg (*)] 25 mg PO BIDMEAL 08/03/14 [Last Taken 04/14/17] Cholecalciferol Vit D3 [Vitamin D3 (*)] 2,000 units PO DAILY 08/03/14 [Last Taken 04/14/17] Lisinopril [Zestril 20 mg (*)] 20 mg PO DAILY #0 tab 08/10/14 [Last Taken ] Gabapentin [Neurontin 100 MG (*)] 300 mg PO HS 02/24/15 [Last Taken 04/13/17] Warfarin Sodium [Coumadin 1MG (*)] 1 mg PO SUMOWETHSA 02/24/15 [Last Taken 04/13] Warfarin Sodium [Coumadin 2MG (*)] 2 mg PO TUFR 02/24/15 [Last Taken 04/14/17] amLODIPine BESYLATE [Norvasc 5 mg (*)] 5 mg PO DAILY 02/24/15 [Last Taken 12:00] fentaNYL [Duragesic 12 MCG Patch (*)] 12 mcg TD Q72H 02/24/15 [Last Taken 12:00] Omeprazole [Prilosec] 40 mg PO DAILY #0 capsule. 02/28/15 [Last Taken 04/14/17 ] Diazepam 2.5 mg PO HS 03/23/17 [Last Taken 04/13/17] oxyCODONE/APAP 5/325 [Percocet 5/325 (*)] 1 tab PO HS 04/14/17 [Last Taken 04/13] Meclizine HCl [Meclizine HCl 25 mg (RX,OTC)] 25 mg PO Q6H PRN tab 04/16/17 [ Last Taken Unknown] Discharge Medications: Refer to the Discharge Home Medication list for PRN reason. - Orders Services needed: Home Care, Registered Nurse Home Care Face to Face: I certify that this patient was under my care and that I had the required [id number] encounter meeting the encounter requirements on the discharge day. My findings support the fact that the patient is homebound as defined in Home Care Face to Face Continued: CMS Chapter 7 Medicare Benefits Manual 30.1.1 , The condition of the patient is such that there exists a normal inability to leave home and consequently, leaving home would require a considerable and taxing effort. Diet Recommendation: no restrictions on diet Diet Texture: Regular Texture Diet Additional: Patient admitted for vertigo. Evaluate her at home to make sure her vital signs are stable. She will need an INR checked on MondayApril 18. Coumadin to be held on MondayApril 16 and resumed on April 17 - Follow Up Care Current Providers and Referrals: Dm Carney MD [Primary Care Provider] - As per Instructions
--- NOTE | 2017-04-16 14:00 | GDS ---
[f rep st] DISCHARGE SUMMARY DISCHARGE DIAGNOSES: 1. Vertigo. 2. Pulmonary embolism. 3. Hypertension. 4. Hyperlipidemia. 5. Hypothyroidism. HISTORY OF PRESENT ILLNESS: Briefly, the patient is an 81-year-old female with a history of a PE on chronic anticoagulation. She presented to the emergency room with sudden onset of vertigo and associ ated nausea and vomiting. In the emergency room, she had a CT of the brain that was performed which showed severe cerebral and cerebellar atrophy. Old lacunar infarcts were noted. In addition, she pattne d an MRI to be sure she did not have a stroke. This was negative. Her symptoms have since resolved. She will further follow up with Dr. Carney in the outpatient setting. HOSPITAL COURSE: 1. Vertigo. Symptoms resolved. Recommending the patient and family get some meclizine to have at h ome in case this should reoccur. 2. PE. Her INR is 3.36. It has increased over her stay. Will have her hold dose of Coumadin tonig ht and get her INR checked on Monday. 3. Hypertension. Blood pressure is stable. 4. Hyperlipidemia. Statin. 5. Hypothyroidism. Synthroid. DISCHARGE CONDITION: Stable. Blood pressure is 122/44, O2 sats on room air 95%, respiratory rate is 18, pulse is 57, temperature is 36.4 Celsius. MEDICATIONS AT DISCHARGE: Please see the ER. DISCHARGE INSTRUCTIONS: 1. To follow up with Dr. Carney in the next week. 2. To hold her Coumadin and restart tomorrow. 3. She can buy meclizine [id number] if she should get vertigo symptoms again. Greater than 30 minutes discharging and coordinating the patient's care. In addition, a home care nu rse will check on her this week. /[id number]/MODL
[2017-04-16 15:30] VITALS: BP 140/51
[2017-04-16] MEDS ORDERED: WARFARIN SODIUM 1 MG TAB PO SCH (16:00)
--- NOTE | 2017-04-16 18:01 | ASMTCMCOM ---
CM Note CM Note Notes: Pt ready to DC today. She has changed her mnd and does want a HC RN for the first week. [facility] alerted. Date Signed: 04/16/2017 12:30 PM Electronically Signed By:Leesa Anaya LCSW
[2017-04-17] MEDS ORDERED: fentaNYL 12 MCG PATCH TD SCH (21:45)
[2017-04-18] MEDS ORDERED: WARFARIN SODIUM 2 MG TAB PO SCH (16:00)
== END 2017-04-16 15:06 | disposition home health service (06) | DRG 149 ==
LOC: EDUNIT# → OBSVTOIN 19:55 → F3N 20:58
PROVIDERS: ADMIT Hospitalist; ATTEND Hospitalist
DX: R42 Dizziness and giddiness (principal); I10 Essential (primary) hypertension; E78.5 Hyperlipidemia, unspecified; E03.9 Hypothyroidism, unspecified; I25.2 Old myocardial infarction; I25.10 Atherosclerotic heart disease of native coronary artery without angina pectoris; G89.29 Other chronic pain; Z86.711 Personal history of pulmonary embolism; Z79.01 Long term (current) use of anticoagulants
CPT/HCPCS: 97116-GP; 97161-GP; 97165-GO; 97530-GP; G8978-GP-CJ; G8979-GP-CI; G8987-GO-CJ; G8988-GO-CI

== ENCOUNTER → 2018-07-13 | Outpatient (CLI) | payer OTHER, MEDICARE | LOC: FIMAGING 18:32 ==